=== PATIENT | male | born 1955 | race Caucasian/White ===

== ENCOUNTER 2018-01-07 22:13 | Inpatient (IN) | payer MEDICAID, OTHER ==
[~2018-01-07] VITALS: Ht 175.3 cm; Wt 136.7 kg
[~2018-01-07 22:13] MED LIST: ALBU18HF INH; ASPI-496 PO; FENO145T32 PO; IBUP-1223 PO; METH500T7 PO; OMEG1CAP23 PO
[2018-01-07] MEDS ORDERED: SODIUM CHLORIDE FLUSH 10ML SYR IVF ONE (22:30)
[2018-01-07 22:39] LABS: BASOPHILS # (AUTO) 0.04 x10^3/uL (0-0.1); BASOPHILS % (AUTO) 1 % (0-1); EOSINOPHILS # (AUTO) 0.25 x10^3/uL (0-0.4); EOSINOPHILS % (AUTO) 3 % (1-7); LYMPHOCYTES # (AUTO) 2.82 x10^3/uL (1-3.4); LYMPHOCYTES % (AUTO) 32 % (22-44); MD NO; MEAN CORPUSCULAR HEMOGLOBIN 30.6 pg (27.5-34.5); MEAN CORPUSCULAR HGB CONC 33.5 g/dL (33.2-36.2); MEAN CORPUSCULAR VOLUME 91.4 fL (81-97); MEAN PLATELET VOLUME 7.4 fL (7.4-10.4); MONOCYTES # (AUTO) 0.82 x10^3/uL (0.2-0.8); MONOCYTES % (AUTO) 9 % (2-9); NEUTROPHILS # (AUTO) 4.82 x10^3/uL (1.8-6.8); NEUTROPHILS % (AUTO) 55 % (42-75); PLATELET COUNT 211 x10^3/uL (130-400); RED BLOOD COUNT 5.73 x10^6/uL (4.38-5.82); RED CELL DISTRIBUTION WIDTH 13.6 % (9.4-14.8)
[2018-01-07] MEDS ORDERED: LISI1TAB3 PO (22:40)
[2018-01-07 22:44] LABS: INTERNATIONAL NORMALIZED RATIO 1.04 (0.93-1.1); PROTHROMBIN TIME 10.7 Seconds (9.6-11.5)
[2018-01-07] MEDS ORDERED: OMNIPAQUE 350 MG/ML, 100ML BOTTLE ONE (22:54)
[2018-01-07] MEDS ORDERED: ALTEPLASE 1 MG/ML ONE (23:22)
[2018-01-07 23:25] LABS: ALANINE AMINOTRANSFERASE 25 U/L (12-78); ALBUMIN 3.2 g/dL (3.4-5.0); ANION GAP 7 mmol/L (5-15); CALCIUM 8.6 mg/dL (8.5-10.1); CHLORIDE 102 mmol/L (98-107); CREATININE 1.22 mg/dL (0.7-1.3)
[2018-01-07 23:29] LABS: ALKALINE PHOSPHATASE 72 U/L (45-117); BILIRUBIN,TOTAL 0.3 mg/dL (0.2-1.0); TOTAL PROTEIN 7.5 g/dL (6.4-8.2); TROPONIN I < 0.015 ng/mL (0.000-0.045)
[2018-01-07] MEDS ORDERED: LABETALOL 5MG/ML, 20ML ONE (23:41)
[2018-01-08] VITALS (7 sets, daily range): BP systolic 101–133; BP diastolic 56–74
[2018-01-08] MEDS ORDERED: ALTEPLASE 81 MG in VIAL 1 EACH IV ONE
[2018-01-08] MEDS ORDERED: ALTEPLASE 9 MG in SYRINGE 1 EA IVPush ONE
[2018-01-08] MEDS ORDERED: SODIUM CHLORIDE 0.9% 1,000 ML IV SCH (00:01)
[2018-01-08] MEDS ORDERED: ONDANSETRON 2MG/ML, 2ML IVPush PRN (00:30)
[2018-01-08] MEDS ORDERED: DOCUSATE 100 MG CAPSULE PO PRN (00:30)
[2018-01-08] MEDS ORDERED: POLYETHYLENE GLYCOL 17 GM PACKET PO PRN (00:30)
[2018-01-08] MEDS ORDERED: LABETALOL 5MG/ML, 20ML IV PRN (00:30)
[2018-01-08] MEDS ORDERED: PROMETHAZINE 25 MG/ML, 1ML IM PRN (00:30)
[2018-01-08 00:31] LABS: HEMOGLOBIN A1C 5.9 % (4.2-6.3)
[2018-01-08 00:34] LABS: FREE T4 (FREE THYROXINE) 0.9 ng/dL (0.76-1.46); THYROID STIMULATING HORMONE 2.78 mIU/L (0.358-3.740)
[2018-01-08 02:04] LABS: MICROSCOPIC NOT IND
[2018-01-08 02:07] LABS: CULTURE INDICATED? NO
[2018-01-08] MEDS: ACETAMINOPHEN 650 MG/20.3 ML UDC PO PRN ×2 (02:35→09:16)
[2018-01-08 04:36] LABS: BASOPHILS # (AUTO) 0.02 x10^3/uL (0-0.1); BASOPHILS % (AUTO) 0 % (0-1); EOSINOPHILS # (AUTO) 0.23 x10^3/uL (0-0.4); EOSINOPHILS % (AUTO) 3 % (1-7); LYMPHOCYTES # (AUTO) 2.31 x10^3/uL (1-3.4); LYMPHOCYTES % (AUTO) 26 % (22-44); MD NO; MEAN CORPUSCULAR HEMOGLOBIN 30.6 pg (27.5-34.5); MEAN CORPUSCULAR HGB CONC 33.4 g/dL (33.2-36.2); MEAN CORPUSCULAR VOLUME 91.7 fL (81-97); MEAN PLATELET VOLUME 7.4 fL (7.4-10.4); MONOCYTES # (AUTO) 0.63 x10^3/uL (0.2-0.8); MONOCYTES % (AUTO) 7 % (2-9); NEUTROPHILS # (AUTO) 5.85 x10^3/uL (1.8-6.8); NEUTROPHILS % (AUTO) 65 % (42-75); PLATELET COUNT 206 x10^3/uL (130-400); RED BLOOD COUNT 5.42 x10^6/uL (4.38-5.82); RED CELL DISTRIBUTION WIDTH 13.2 % (9.4-14.8)
[2018-01-08 04:39] LABS: ALBUMIN 3.2 g/dL (3.4-5.0); ANION GAP 7 mmol/L (5-15); CALCIUM 8.5 mg/dL (8.5-10.1); CHLORIDE 106 mmol/L (98-107)
[2018-01-08 04:44] LABS: ALANINE AMINOTRANSFERASE 25 U/L (12-78); ALKALINE PHOSPHATASE 67 U/L (45-117); BILIRUBIN,TOTAL 0.5 mg/dL (0.2-1.0); CHOL/HDL RATIO 8.1; CHOLESTEROL, TOTAL 194 mg/dL (140-239); CREATININE 1.26 mg/dL (0.7-1.3); HDL CHOL % 12 % (26-37); HDL CHOLESTEROL (DIRECT) 24 mg/dL (40-60); LDL CHOLESTEROL,CALCULATED 126 mg/dL (54-169); LDL/HDL RATIO 5.3 (0.5-3.0); TOTAL PROTEIN 7.4 g/dL (6.4-8.2); TRIGLYCERIDES 221 mg/dL (50-200); VLDL CHOLESTEROL 44 mg/dL (0-25)
[2018-01-08] MEDS ORDERED: HYDROCHLOROTHIAZIDE 12.5 MG CAPSULE PO SCH (09:00)
[2018-01-08] MEDS ORDERED: LISINOPRIL 10 MG TABLET PO SCH (09:00)
[2018-01-08] MEDS: ATORVASTATIN 80 MG TABLET PO SCH (20:10)
[2018-01-08] MEDS ORDERED: ATORVASTATIN 40 MG TABLET PO SCH (21:00)
[2018-01-09] VITALS: BP 114/69
[2018-01-09 04:00] VITALS: BP 115/55
[2018-01-09 04:43] LABS: BASOPHILS % (AUTO) 0 % (0-1); EOSINOPHILS # (AUTO) 0.27 x10^3/uL (0-0.4); EOSINOPHILS % (AUTO) 3 % (1-7); LYMPHOCYTES # (AUTO) 2.08 x10^3/uL (1-3.4); LYMPHOCYTES % (AUTO) 23 % (22-44); MD NO; MEAN CORPUSCULAR HEMOGLOBIN 30.6 pg (27.5-34.5); MEAN CORPUSCULAR HGB CONC 33.5 g/dL (33.2-36.2); MEAN CORPUSCULAR VOLUME 91.4 fL (81-97); MEAN PLATELET VOLUME 7.1 fL (7.4-10.4); MONOCYTES # (AUTO) 0.61 x10^3/uL (0.2-0.8); MONOCYTES % (AUTO) 7 % (2-9); NEUTROPHILS # (AUTO) 5.93 x10^3/uL (1.8-6.8); NEUTROPHILS % (AUTO) 67 % (42-75); PLATELET COUNT 214 x10^3/uL (130-400); RED BLOOD COUNT 5.18 x10^6/uL (4.38-5.82); RED CELL DISTRIBUTION WIDTH 13.5 % (9.4-14.8)
[2018-01-09 04:48] LABS: ANION GAP 6 mmol/L (5-15); CALCIUM 8.8 mg/dL (8.5-10.1); CHLORIDE 104 mmol/L (98-107)
[2018-01-09 04:49] LABS: CREATININE 1.12 mg/dL (0.7-1.3)
[2018-01-09] MEDS: ACETAMINOPHEN 650 MG/20.3 ML UDC PO PRN (07:32)
[2018-01-09] MEDS: CLOPIDOGREL 75 MG TABLET PO SCH (10:01)
[2018-01-09 13:45] VITALS: BP 133/82
[2018-01-09] MEDS: ATORVASTATIN 80 MG TABLET PO SCH (20:48)
[2018-01-09 20:49] VITALS: BP 135/86
[2018-01-10 02:00] VITALS: BP 121/77
[2018-01-10 04:57] VITALS: BP 122/77
[2018-01-10 07:25] VITALS: BP 140/90
[2018-01-10] MEDS: CLOPIDOGREL 75 MG TABLET PO SCH (09:22)
[2018-01-10 12:27] VITALS: BP 133/86
[2018-01-10] MEDS ORDERED: CLOP75TA PO (14:47)
[2018-01-10] MEDS ORDERED: ATOR-2 PO (14:47)
== END 2018-01-10 16:24 | disposition home or self-care (01) | DRG 65 ==
LOC: ED 22:41 → EDIP 23:27 → CCU 01-08 00:17 → 4WST 01-09 13:40 → DCLOUNGE 01-10 16:00
PROVIDERS: ADMIT Internal Medicine; ATTEND Internal Medicine
DX: I63.332 Cerebral infarction due to thrombosis of left posterior cerebral artery (principal); E44.0 Moderate protein-calorie malnutrition; Z68.41 Body mass index [BMI] 40.0-44.9, adult; G81.91 Hemiplegia, unspecified affecting right dominant side; E66.9 Obesity, unspecified; E78.5 Hyperlipidemia, unspecified; I10 Essential (primary) hypertension; M51.26 Other intervertebral disc displacement, lumbar region; M54.30 Sciatica, unspecified side; N40.0 Benign prostatic hyperplasia without lower urinary tract symptoms; Z82.3 Family history of stroke; Z82.49 Family history of ischemic heart disease and other diseases of the circulatory system; Z86.718 Personal history of other venous thrombosis and embolism; Z87.891 Personal history of nicotine dependence
CPT/HCPCS: 36415; 70450; 70496; 70498; 70551; 80047; 80048; 80053; 80061; 81003; 82962; 83036; 83735; 84439; 84443; 84484; 85025; 85610; 85730; 87081; 93005; 93306; 93880; 96374; J2997; Q9967; 92523-GN; J7030